=== PATIENT | male | born 1970 | race Caucasian/White ===

== ENCOUNTER 2021-11-23 18:00 | Outpatient (CLI) | payer BC | END 2021-11-23 18:01 | disposition home or self-care (01) | LOC: SLEEPLAB 18:00 | PROVIDERS: ATTEND Family Medicine | DX: G47.33 Obstructive sleep apnea (adult) (pediatric) (principal); R53.83 Other fatigue; G47.61 Periodic limb movement disorder; R06.83 Snoring; I10 Essential (primary) hypertension; G47.00 Insomnia, unspecified; G51.0 Bell's palsy; F90.9 Attention-deficit hyperactivity disorder, unspecified type | CPT/HCPCS: 95800 ==

== ENCOUNTER 2023-05-13 08:33 | Outpatient (CLI) | payer BC | END 2023-05-13 08:34 | disposition home or self-care (01) | LOC: BICRAD 08:33 | PROVIDERS: ATTEND Family Medicine | DX: M79.672 Pain in left foot (principal) ==